=== PATIENT | male | born 1960 | race Caucasian/White ===

== ENCOUNTER 2020-03-19 11:41 | Emergency (ER) | payer MEDICAID ==
[~2020-03-19] VITALS: Ht 188 cm; Wt 155.9 kg
--- NOTE | 2020-03-19 16:59 | NUR ---
Pt is refusing venous ultrasound d/t his pants would have to be cut off and he doesn't have other pants that will fit. Pt states that he has trouble finding pants that will fit d/t to his size. Pt states that he will f/u with someone later for the venous ultrasound.
--- NOTE | 2020-03-19 18:00 | NUR ---
Wrapped bilateral lower legs, placing xeroform on open areas, applying cast padding and then peter wraps. Neurovascular intact.
[2020-03-19 18:20] VITALS: BP 156/86
== END 2020-03-19 18:23 | disposition home or self-care (01) ==
LOC: ER 11:42
DX: S90.822A Blister (nonthermal), left foot, initial encounter (principal); R60.0 Localized edema; M77.9 Enthesopathy, unspecified; Z59.0 Homelessness; X58.XXXA Exposure to other specified factors, initial encounter; Y93.89 Activity, other specified; Y92.89 Other specified places as the place of occurrence of the external cause; Y99.8 Other external cause status
CPT/HCPCS: 73620; 99284

== ENCOUNTER → 2020-05-02 | Outpatient (CLI) | payer MEDICAID | END | disposition home or self-care (01) | LOC: EDSTATUS 10:00 → WOUND CARE 10:05 | PROVIDERS: ATTEND Nurse Practitioner | DX: Q82.0 Hereditary lymphedema (principal); L89.610 Pressure ulcer of right heel, unstageable; L89.890 Pressure ulcer of other site, unstageable; L98.492 Non-pressure chronic ulcer of skin of other sites with fat layer exposed; M77.9 Enthesopathy, unspecified; Z86.718 Personal history of other venous thrombosis and embolism; Z79.4 Long term (current) use of insulin | CPT/HCPCS: 97597; 97598 ==

== ENCOUNTER 2021-03-13 11:23 | Emergency (ER) | payer MEDICAID ==
[~2021-03-13] VITALS: Ht 188 cm; Wt 154.6 kg
[2021-03-13 11:34] VITALS: BP 126/60
== END 2021-03-13 18:15 | disposition left against medical advice (07) ==
LOC: ER 11:24
DX: Z53.21 Procedure and treatment not carried out due to patient leaving prior to being seen by health care provider (principal)